=== PATIENT | female | born 1950 | race Caucasian/White ===

== ENCOUNTER 2023-08-08 14:54 | Emergency (ER) | payer MEDICARE, MEDICAID ==
[~2023-08-08] VITALS: Ht 167.6 cm; Wt 77.6 kg
[2023-08-08] MEDS ORDERED: TDAP [DIPH/PERTUSSIS/TET] 0.5 ML VIAL IM ONE (15:20)
[2023-08-08] MEDS ORDERED: LIDOCAINE 1% INJ 50 ML MDV IJ ONE (15:20)
[2023-08-08] MEDS: TDAP [DIPH/PERTUSSIS/TET] 0.5 ML VIAL IM ONE (15:29)
[2023-08-08] MEDS: LIDOCAINE 1% INJ 50 ML MDV IJ ONE (15:30)
[2023-08-08] MEDS ORDERED: ACET-2605 PO (18:15)
[2023-08-08 18:33] VITALS: BP 128/71; TEMP 98.1; O2SAT 96
== END 2023-08-08 18:33 | disposition home or self-care (01) ==
LOC: ER 15:00
DX: S01.112A Laceration without foreign body of left eyelid and periocular area, initial encounter (principal); S09.90XA Unspecified injury of head, initial encounter; I10 Essential (primary) hypertension; E78.5 Hyperlipidemia, unspecified; W01.0XXA Fall on same level from slipping, tripping and stumbling without subsequent striking against object, initial encounter; Y93.89 Activity, other specified; Y92.89 Other specified places as the place of occurrence of the external cause; Y99.8 Other external cause status
CPT/HCPCS: 12013; 70450; 90471; 90715; 99285; J3490